=== PATIENT | male | born 1935 | race Caucasian/White ===

== ENCOUNTER 2021-03-19 06:09 | Inpatient (IN) | payer MEDICARE ==
[2021-03-19 11:38] VITALS: BMI 30.8
[2021-03-19] MEDS ORDERED: Nitroglycerin 0.4 MG TAB (25 Tab Bottle) SL PRN (12:29)
[2021-03-19] MEDS ORDERED: Hydrochlorothiazide 25 MG TAB PO SCH (13:15)
[2021-03-19] MEDS ORDERED: Lisinopril 20 MG TAB PO SCH (13:30)
[2021-03-19] MEDS: Lisinopril 20 MG TAB PO SCH (13:39)
[2021-03-19 14:07] LABS: Troponin I 0.083 ng/mL (< 0.028)
[2021-03-19] MEDS ORDERED: FLU VACC QS2021-22(65YR UP)/PF 240 MCG/0.7 ML SYRINGE IM ONE (18:00)
[2021-03-19] MEDS ORDERED: Communication Order-Pharmacy FS SCH (18:45)
[2021-03-19 18:51] LABS: Troponin I 0.083 ng/mL (< 0.028)
[2021-03-19] MEDS ORDERED: Enoxaparin Sodium 100 MG/ML SYRINGE SC SCH (21:00)
[2021-03-19 23:43] LABS: Troponin I 0.105 ng/mL (< 0.028)
[2021-03-20 00:55] LABS: SARS-CoV-2 PCR by NAA Not Detected (NotDetected)
[2021-03-20] MEDS: Atorvastatin Calcium 40 MG TAB PO SCH (06:10)
[2021-03-20] MEDS: Lisinopril 20 MG TAB PO SCH (06:11)
[2021-03-20] MEDS ORDERED: Sodium Chloride 0.9% 1,000 ML IV SCH (08:15)
[2021-03-20] MEDS ORDERED: Hydrochlorothiazide 25 MG TAB PO SCH (09:00)
[2021-03-20] MEDS ORDERED: Aspirin 325 mg Enteric Coated Tablet PO SCH (09:00)
[2021-03-20] MEDS ORDERED: Non-Formulary Item 1 EACH (Hydrochlorothiazide [Hydrochlorothiazide] 12.5 MG Tablet) PO SCH (09:00)
[2021-03-20 09:38] LABS: #Eosinphils 0.3 thou/uL (0.0-0.7); #Lymphocytes 1.6 thou/uL (1.20-3.40); #Monocytes 0.8 thou/uL (0.11-0.59); #Neutrophils 4.8 thou/uL (1.40-6.50); %Basophils 0.2 % (0.0-1.0); %Eosinophils 3.5 % (0.0-10.0); %Lymphocytes 21.6 % (21.0-51.0); %Monocytes 10.4 % (0.0-10.0); %Neutrophils 64.3 % (42.0-75.0); Mean Corpuscular HGB CONC 34.2 g/dL (32.0-36.0); Mean Corpuscular Hemoglobin 33.5 pg (27.0-31.0); Mean Corpuscular Volume 97.8 fL (78.0-98.0); Mean Platelet Volume 7.1 fL (7.4-10.4); Platelet Count 277 thou/uL (130-400); RBC Distribution Width 11.8 % (11.5-14.5); Red Blood Cell (RBC) Count 3.88 mill/uL (4.70-6.10); White Blood Cell (WBC) Count 7.4 thou/uL (4.8-10.8)
[2021-03-20 09:59] LABS: Anion Gap 12 mmol/L (10-20); BUN (Urea Nitrogen) 16 mg/dL (8.4-25.7); Calc. Creatinine Clearance 85 mL/min (70-130); Carbon Dioxide 23 mmol/L (23-31); Chloride 99 mmol/L (98-107); Glucose 88 mg/dL (83-110); Potassium 4.2 mmol/L (3.5-5.1); Sodium 130 mmol/L (136-145)
[2021-03-20] MEDS ORDERED: Communication Order-Pharmacy FS SCH (10:00)
[2021-03-20] MEDS ORDERED: Lidocaine 1% (PF) 30 ML VIAL ONE (11:09)
[2021-03-20] MEDS ORDERED: Midazolam HCl 2 mg/2 ml Vial ONE ×3 (12:27→13:45)
[2021-03-20] MEDS ORDERED: Fentanyl 100 MCG/2 ML VIAL ONE (12:27)
[2021-03-20] MEDS ORDERED: Iopamidol 370 76% 100 ML VIAL ONE (12:48)
[2021-03-20] MEDS ORDERED: Heparin 10,000 UNITS/ 10 ML VIAL ONE (12:49)
[2021-03-20] MEDS ORDERED: Metoprolol Tartrate 5 MG/5 ML VIAL ONE (12:59)
[2021-03-20] MEDS ORDERED: Nitroglycerin 2% Ointment 1 INCH/1 GM Packet ONE (13:02)
[2021-03-20] MEDS ORDERED: Nitroglycerin 4.9 GM Bottle ONE (13:12)
[2021-03-20] MEDS ORDERED: Albumin 5% 500 ML ONE (13:25)
[2021-03-20] MEDS ORDERED: Fentanyl 250 MCG/5 ML VIAL ONE (13:30)
[2021-03-20] MEDS ORDERED: Dexmedetomidine 200 MCG/2 ML VIAL ONE (13:30)
[2021-03-20] MEDS ORDERED: Heparin 5,000 UNITS/ML VIAL ONE (14:00)
[2021-03-20] MEDS ORDERED: Lidocaine 1% PF 5 ML VIAL ONE (14:00)
[2021-03-20] MEDS ORDERED: Ondansetron PF 4 MG/2 ML Vial ONE (14:00)
[2021-03-20] MEDS ORDERED: Aminocaproic Acid 5 GM/20 ML VIAL ONE (14:00)
[2021-03-20] MEDS ORDERED: Rocuronium Bromide 10 MG/ML (10ML VIAL) ONE (14:00)
[2021-03-20] MEDS ORDERED: PROPOFOL 200 MG/20 ML VIAL ONE (14:00)
[2021-03-20] MEDS ORDERED: Cardioplegic Soln 1,000 ML BAG ONE (14:00)
[2021-03-20] MEDS ORDERED: PHENYLEPHRINE-NS 100 MCG/ML 10 ML SYRINGE ONE (14:00)
[2021-03-20] MEDS ORDERED: Protamine Sulfate 250 MG/25 ML VIAL ONE (14:00)
[2021-03-20] MEDS ORDERED: Papaverine 60 MG/2 ML VIAL ONE (14:00)
[2021-03-20] MEDS ORDERED: Sodium Bicarb 50 MEQ/50 ML Abboject 8.4% SYRINGE ONE (14:00)
[2021-03-20] MEDS ORDERED: Calcium Chloride 1 GM/10 ML Abboject SYRINGE ONE (14:00)
[2021-03-20] MEDS ORDERED: Heparin 30,000 units/30 ml VIAL ONE (14:00)
[2021-03-20] MEDS ORDERED: Glycopyrrolate 0.2 MG/ML 5 ML SYRINGE ONE (14:00)
[2021-03-20] MEDS ORDERED: Thrombin 5000 UNITS/5 ML VIAL ONE (14:00)
[2021-03-20] MEDS ORDERED: Dexamethasone 20 MG/5 ML VIAL ONE (14:00)
[2021-03-20] MEDS ORDERED: Hetastarch 6% 500 ML 500 ML IVPB PRN (17:15)
[2021-03-20] MEDS ORDERED: Morphine 2 MG/ML VIAL SLOW IVP PRN (17:15)
[2021-03-20] MEDS ORDERED: Norepinephrine 8 MG/0.9% NS 250 ML IVPB PRN (17:15)
[2021-03-20] MEDS ORDERED: Promethazine HCl 25 MG/ML VIAL IM PRN (17:15)
[2021-03-20] MEDS ORDERED: Bisacodyl 5 MG TAB PO PRN (17:15)
[2021-03-20] MEDS ORDERED: hydrALAZINE 20 MG/ML VIAL SLOW IVP PRN (17:15)
[2021-03-20] MEDS ORDERED: Bisacodyl 10 MG SUPP PR PRN (17:15)
[2021-03-20] MEDS ORDERED: Post-Op Insulin Drip Protocol IVPB ONE (17:15)
[2021-03-20] MEDS ORDERED: Potassium Chloride 20 MEQ/100 ML PREMIX BAG IVPB PRN (17:15)
[2021-03-20] MEDS ORDERED: niCARdipine 25 MG in Sodium Chloride 0.9% 250 ML 250 ML IVPB PRN (17:15)
[2021-03-20] MEDS ORDERED: Guaifenesin DM 100-10/5 ML UDCUP PO PRN (17:15)
[2021-03-20] MEDS ORDERED: HYDROcodone/Acetaminophen 5/325 mg Tablet PO PRN (17:15)
[2021-03-20] MEDS ORDERED: Nitroglycerin 50 MG/250 ML BOT 250 ML IVPB PRN (17:15)
[2021-03-20] MEDS ORDERED: Ondansetron PF 4 MG/2 ML Vial IVP PRN (17:15)
[2021-03-20] MEDS ORDERED: Mag-Al 1200 mg/1200 mg/30 ML UDCUP PO PRN (17:15)
[2021-03-20] MEDS ORDERED: HUMULIN R 100 UNITS in Sodium Chloride 0.9% 100 ML IVPB SCH (17:30)
[2021-03-20] MEDS ORDERED: Dextrose 5% in Water 1,000 ML IV PRN (17:30)
[2021-03-20] MEDS ORDERED: Dextrose 50% Abboject 50 ML SYRINGE SLOW IVP PRN (17:30)
[2021-03-20] MEDS ORDERED: Lantus 1000 UNITS/10 ML VIAL SC PRN (17:30)
[2021-03-20 17:31] LABS: Mean Corpuscular HGB CONC 34.5 g/dL (32.0-36.0); Mean Corpuscular Volume 98.8 fL (78.0-98.0); Mean Platelet Volume 6.9 fL (7.4-10.4); Platelet Count 208 thou/uL (130-400); RBC Distribution Width 11.9 % (11.5-14.5); Red Blood Cell (RBC) Count 3.23 mill/uL (4.70-6.10); White Blood Cell (WBC) Count 14.5 thou/uL (4.8-10.8)
[2021-03-20 17:43] LABS: INR-International Normal Ratio 1.3; PTT 36.7 sec (22.9-36.1); Prothrombin Time 16.4 sec (12.0-14.7)
[2021-03-20 17:44] LABS: Anion Gap 11 mmol/L (10-20); BUN (Urea Nitrogen) 14 mg/dL (8.4-25.7); Calc. Creatinine Clearance 89 mL/min (70-130); Calcium 8.1 mg/dL (7.8-10.44); Carbon Dioxide 21 mmol/L (23-31); Chloride 103 mmol/L (98-107); Glucose 128 mg/dL (83-110); Potassium 4.3 mmol/L (3.5-5.1); Sodium 131 mmol/L (136-145)
[2021-03-20] MEDS ORDERED: Morphine 4 MG/ML VIAL SLOW IVP PRN (17:45)
[2021-03-20] MEDS: Lactated Ringer's 1,000 ML IV SCH (17:50)
[2021-03-20] MEDS: Insulin Regular 300 UNITS/3 ML VIAL SC PRN ×2 (17:50→21:08)
[2021-03-20 17:58] LABS: Band 41 % (5-11); Eosinophils 1 % (0-10); Lymphocytes 13 % (21-51); MDiff Complete? YES; Macrocytosis SLIGHT = 6-15 cells (100X) (0-5/hpf); Metamyelocyte 1 % (0-0); Monocytes 4 % (0-10); Neutrophil 39 % (42-75); Platelet Morphology Comment Appears Adequate; Reactive Lymphocytes 1 % (0-10); Reflex for Review?? NO
[2021-03-20] MEDS: Fentanyl 100 MCG/2 ML VIAL SLOW IVP PRN ×2 (18:15→21:01)
[2021-03-20] MEDS ORDERED: Famotidine/PF 20 mg/2ml Vial SLOW IVP SCH (21:00)
[2021-03-20] MEDS: ceFAZolin Sodium/D5W 2 GM in Premix Bag 1 BAG IVPB SCH (21:00)
[2021-03-20 22:36] LABS: Hemoglobin 11.1 g/dL (14.0-18.0)
[2021-03-20 22:49] LABS: Potassium 4.4 mmol/L (3.5-5.1)
[2021-03-21] MEDS: Insulin Regular 300 UNITS/3 ML VIAL SC PRN (01:27)
[2021-03-21 04:29] LABS: #Lymphocytes 0.6 thou/uL (1.20-3.40); #Monocytes 0.7 thou/uL (0.11-0.59); #Neutrophils 10.7 thou/uL (1.40-6.50); %Eosinophils 0.1 % (0.0-10.0); %Lymphocytes 4.8 % (21.0-51.0); %Monocytes 5.5 % (0.0-10.0); %Neutrophils 89.6 % (42.0-75.0); Hemoglobin 11.1 g/dL (14.0-18.0); Mean Corpuscular HGB CONC 35.3 g/dL (32.0-36.0); Mean Corpuscular Hemoglobin 34.6 pg (27.0-31.0); Mean Corpuscular Volume 98.1 fL (78.0-98.0); Mean Platelet Volume 7.3 fL (7.4-10.4); Platelet Count 224 thou/uL (130-400); RBC Distribution Width 11.9 % (11.5-14.5); Red Blood Cell (RBC) Count 3.21 mill/uL (4.70-6.10); White Blood Cell (WBC) Count 11.9 thou/uL (4.8-10.8)
[2021-03-21 04:46] LABS: Anion Gap 15 mmol/L (10-20); BUN (Urea Nitrogen) 20 mg/dL (8.4-25.7); Calc. Creatinine Clearance 80 mL/min (70-130); Calcium 8.3 mg/dL (7.8-10.44); Carbon Dioxide 19 mmol/L (23-31); Chloride 104 mmol/L (98-107); Glucose 126 mg/dL (83-110); Potassium 4.5 mmol/L (3.5-5.1); Sodium 133 mmol/L (136-145)
[2021-03-21] MEDS: ceFAZolin Sodium/D5W 2 GM in Premix Bag 1 BAG IVPB SCH ×2 (06:21→14:57)
[2021-03-21] MEDS: Lactated Ringer's 1,000 ML IV SCH (06:22)
[2021-03-21] MEDS ORDERED: Polyethylene Glycol 3350 17 GM Packet PO PRN (06:29)
[2021-03-21] MEDS: Fentanyl 100 MCG/2 ML VIAL SLOW IVP PRN ×3 (06:33→20:57)
[2021-03-21] MEDS ORDERED: Mineral Oil ENEMA PR PRN (07:20)
[2021-03-21] MEDS ORDERED: Guaifenesin DM 100-10/5 ML UDCUP PO PRN (07:20)
[2021-03-21] MEDS ORDERED: Nitroglycerin 0.4 MG TAB (25 Tab Bottle) SL PRN (07:20)
[2021-03-21] MEDS ORDERED: Aspirin 325 MG TAB PO SCH (09:00)
[2021-03-21] MEDS: Famotidine 20 MG TAB PO SCH ×2 (09:24→20:57)
[2021-03-21] MEDS: Bisacodyl 10 MG SUPP PR SCH (09:24)
[2021-03-21] MEDS: Aspirin 325 mg Enteric Coated Tablet PO SCH (09:24)
[2021-03-21] MEDS: Atorvastatin Calcium 40 MG TAB PO SCH (09:25)
[2021-03-21] MEDS: Polyethylene Glycol 3350 17 GM Packet PO SCH (09:25)
[2021-03-22 05:15] LABS: #Lymphocytes 1.7 thou/uL (1.20-3.40); #Neutrophils 12.3 thou/uL (1.40-6.50); %Basophils 0.1 % (0.0-1.0); %Lymphocytes 10.6 % (21.0-51.0); %Monocytes 12.3 % (0.0-10.0); %Neutrophils 76.9 % (42.0-75.0); Hemoglobin 10.6 g/dL (14.0-18.0); Mean Corpuscular HGB CONC 35.2 g/dL (32.0-36.0); Mean Corpuscular Hemoglobin 34.8 pg (27.0-31.0); Mean Corpuscular Volume 98.9 fL (78.0-98.0); Mean Platelet Volume 7.4 fL (7.4-10.4); Platelet Count 220 thou/uL (130-400); Red Blood Cell (RBC) Count 3.05 mill/uL (4.70-6.10)
[2021-03-22 05:41] LABS: Anion Gap 13 mmol/L (10-20); BUN (Urea Nitrogen) 25 mg/dL (8.4-25.7); Calc. Creatinine Clearance 68 mL/min (70-130); Carbon Dioxide 20 mmol/L (23-31); Chloride 99 mmol/L (98-107); Glucose 132 mg/dL (83-110); Sodium 128 mmol/L (136-145)
[2021-03-22] MEDS: Atorvastatin Calcium 40 MG TAB PO SCH (08:51)
[2021-03-22] MEDS: Polyethylene Glycol 3350 17 GM Packet PO SCH (08:51)
[2021-03-22] MEDS: Aspirin 325 mg Enteric Coated Tablet PO SCH (08:51)
[2021-03-22] MEDS: Famotidine 20 MG TAB PO SCH ×2 (08:51→21:43)
[2021-03-22] MEDS: Lisinopril 5 MG TAB PO SCH ×2 (08:51→21:43)
[2021-03-22] MEDS: Bisacodyl 10 MG SUPP PR SCH (08:52)
[2021-03-22] MEDS ORDERED: Furosemide 40 MG TAB PO SCH (09:00)
[2021-03-22 12:29] LABS: Creatinine, Urine 148.69 mg/dL (63-166)
[2021-03-22] MEDS: HYDROcodone/Acetaminophen 5/325 mg Tablet PO PRN ×2 (16:06→22:57)
[2021-03-23 05:12] LABS: Anion Gap 9 mmol/L (10-20); BUN (Urea Nitrogen) 29 mg/dL (8.4-25.7); Calc. Creatinine Clearance 79 mL/min (70-130); Calcium 7.8 mg/dL (7.8-10.44); Carbon Dioxide 24 mmol/L (23-31); Chloride 96 mmol/L (98-107); Glucose 95 mg/dL (83-110); Potassium 3.8 mmol/L (3.5-5.1); Sodium 125 mmol/L (136-145)
[2021-03-23] MEDS: Atorvastatin Calcium 40 MG TAB PO SCH (10:36)
[2021-03-23] MEDS: Aspirin 325 mg Enteric Coated Tablet PO SCH (10:36)
[2021-03-23] MEDS: Lisinopril 5 MG TAB PO SCH ×2 (10:36→20:28)
[2021-03-23] MEDS: Furosemide 20 MG TAB PO SCH (10:36)
[2021-03-23] MEDS: Famotidine 20 MG TAB PO SCH ×2 (10:36→20:28)
[2021-03-23] MEDS: Polyethylene Glycol 3350 17 GM Packet PO SCH (10:37)
[2021-03-23] MEDS: Acetaminophen 325 MG TAB PO PRN ×2 (10:37→20:28)
[2021-03-23] MEDS: Bisacodyl 10 MG SUPP PR SCH (10:37)
[2021-03-23] MEDS ORDERED: traMADol HCl 50 MG TAB PO PRN (11:12)
[2021-03-23 22:47] LABS: Bacteria/HPF Rare-Few HPF (None Seen); RBC/HPF 0-3 HPF (0-3); Squamous Epithelial None Seen HPF (0-3); WBC/HPF 0-3 HPF (0-3)
[2021-03-24] MEDS: Acetaminophen 325 MG TAB PO PRN (02:09)
[2021-03-24 04:49] LABS: #Eosinphils 0.5 thou/uL (0.0-0.7); #Lymphocytes 1.4 thou/uL (1.20-3.40); #Monocytes 1.2 thou/uL (0.11-0.59); #Neutrophils 7.6 thou/uL (1.40-6.50); %Basophils 0.1 % (0.0-1.0); %Eosinophils 4.9 % (0.0-10.0); %Lymphocytes 12.8 % (21.0-51.0); %Monocytes 11.5 % (0.0-10.0); %Neutrophils 70.7 % (42.0-75.0); Hemoglobin 9.4 g/dL (14.0-18.0); Mean Corpuscular HGB CONC 33.1 g/dL (32.0-36.0); Mean Corpuscular Volume 99.6 fL (78.0-98.0); Mean Platelet Volume 7.5 fL (7.4-10.4); Platelet Count 218 thou/uL (130-400); Red Blood Cell (RBC) Count 2.85 mill/uL (4.70-6.10); White Blood Cell (WBC) Count 10.8 thou/uL (4.8-10.8)
[2021-03-24 05:20] LABS: Anion Gap 12 mmol/L (10-20); BUN (Urea Nitrogen) 21 mg/dL (8.4-25.7); Calc. Creatinine Clearance 93 mL/min (70-130); Calcium 7.7 mg/dL (7.8-10.44); Carbon Dioxide 23 mmol/L (23-31); Chloride 98 mmol/L (98-107); Glucose 90 mg/dL (83-110); Sodium 129 mmol/L (136-145)
[2021-03-24] MEDS: Famotidine 20 MG TAB PO SCH (10:26)
[2021-03-24] MEDS: Polyethylene Glycol 3350 17 GM Packet PO SCH (10:26)
[2021-03-24] MEDS: Aspirin 325 mg Enteric Coated Tablet PO SCH (10:26)
[2021-03-24] MEDS: Atorvastatin Calcium 40 MG TAB PO SCH (10:27)
[2021-03-24] MEDS: Bisacodyl 10 MG SUPP PR SCH (10:28)
[2021-03-24] MEDS: Furosemide 20 MG TAB PO SCH (10:28)
[2021-03-24] MEDS: Lisinopril 5 MG TAB PO SCH (10:29)
[2021-03-24 16:06] VITALS: BP 152/73; TEMP 97.9
== END 2021-03-24 14:25 | disposition home or self-care (01) | DRG 234 ==
LOC: 2SW 06:09 → CCU 03-20 14:24 → EDBD 03-20 15:48 → OBSVTOIN 03-20 15:48 → CCU 03-20 17:14 → 2NO 03-21 07:26
PROVIDERS: ADMIT Student in an Organized Health Care Education/Training Program; ATTEND Internal Medicine
PROC: 021009W Bypass Coronary Artery, One Artery from Aorta with Autologous Venous Tissue, Open Approach (ICD-10-PCS; principal; 2021-03-20)
PROC: 4A023N7 Measurement of Cardiac Sampling and Pressure, Left Heart, Percutaneous Approach (ICD-10-PCS; 2021-03-20)
PROC: 02100Z9 Bypass Coronary Artery, One Artery from Left Internal Mammary, Open Approach (ICD-10-PCS; 2021-03-20)
PROC: 06BQ0ZZ Excision of Left Saphenous Vein, Open Approach (ICD-10-PCS; 2021-03-20)
PROC: 5A1221Z Performance of Cardiac Output, Continuous (ICD-10-PCS; 2021-03-20)
PROC: B2111ZZ Fluoroscopy of Multiple Coronary Arteries using Low Osmolar Contrast (ICD-10-PCS; 2021-03-20)
PROC: B2151ZZ Fluoroscopy of Left Heart using Low Osmolar Contrast (ICD-10-PCS; 2021-03-20)
DX: I21.4 Non-ST elevation (NSTEMI) myocardial infarction (principal); E22.2 Syndrome of inappropriate secretion of antidiuretic hormone; T82.855A Stenosis of coronary artery stent, initial encounter; Z20.822 Contact with and (suspected) exposure to COVID-19; I25.10 Atherosclerotic heart disease of native coronary artery without angina pectoris; E78.5 Hyperlipidemia, unspecified; D64.9 Anemia, unspecified; Y83.1 Surgical operation with implant of artificial internal device as the cause of abnormal reaction of the patient, or of later complication, without mention of misadventure at the time of the procedure; R50.9 Fever, unspecified; R00.1 Bradycardia, unspecified; E87.70 Fluid overload, unspecified; R00.0 Tachycardia, unspecified; Z79.899 Other long term (current) drug therapy; Z79.82 Long term (current) use of aspirin; I25.2 Old myocardial infarction; Z95.5 Presence of coronary angioplasty implant and graft; Z90.89 Acquired absence of other organs
CPT/HCPCS: 36415; 36416; 36430; 71045; 80048; 81015; 82570; 83935; 84300; 84443; 85025; 85610; 85730; 86850; 86900; 86901; 93005; 93010; 93458; 93798; J1100; J1644; J1650; J1815; J2001; J2250; J2405; J2440; J2704; J2720; J3010; J3370; J7050; J7120; P9045; Q9967; S0017; S0028; U0003; U0005